=== PATIENT | female | born 1990 | race Hispanic/Latino ===

== ENCOUNTER 2017-11-17 05:39 | Emergency (ER) | payer SELFPAY ==
[2017-11-17] MEDS ORDERED: MORPHINE 4 MG/ML SYR ONE (06:13)
[2017-11-17] MEDS ORDERED: NA CHLORIDE 0.9% 1,000 ML ONE (06:13)
[2017-11-17] MEDS ORDERED: KETOROLAC 30 MG/ML INJ ONE (06:13)
[2017-11-17] MEDS ORDERED: CEFTRIAXONE 1000 MG/VIAL ONE (06:13)
[2017-11-17] MEDS ORDERED: TAMSULOSIN 0.4 MG SR CAP ONE (06:18)
[2017-11-17] MEDS ORDERED: ONDANSETRON 4 MG/2 ML VIAL ONE (06:19)
[2017-11-17 06:35] LABS: Absolute Lymphocytes (CBC) 1.6 K/uL (0.7-4.9); Absolute Monocytes 0.9 K/uL (0.1-1.3); Absolute Neutrophil 7.4 K/uL (1.8-8.0); Basophils % 0.4 % (0-1.3); Eosinophils % 0.4 % (0-4.4); Hematocrit 38.7 % (36.0-45.0); Lymphocytes % 15.6 % (15.3-44.8); MCH 29.6 pg (27.0-35.0); MCV 85.2 fL (80-100); MPV 10.1 fL (7.6-11.3); Monocytes % 9.4 % (3.3-12.3); RBC Red Blood Cell Count 4.54 M/uL (3.86-4.86)
[2017-11-17 06:45] LABS: Albumin 4.6 g/dL (3.4-5.0); Bilirubin Direct 0.1 mg/dL (0-0.2); Bilirubin Total 0.6 mg/dL (0.2-1.0); Potassium 3.7 mmol/L (3.5-5.1); Protein, Total 8.1 g/dL (6.4-8.2)
[2017-11-17 06:59] LABS: Urine Blood 2+ (NEG); Urine Glucose NEGATIVE (NEG); Urine Protein 2+ (NEG); Urine Specific Gravity 1.025 (1.005-1.030)
--- NOTE | 2017-11-17 07:24 | RAD REPORT ---
EXAM DESCRIPTION: CT - Stone Protocol - 11/17/2017 7:05 am CLINICAL HISTORY: Flank pain. ABD PAIN COMPARISON: No comparisons TECHNIQUE: Axial images were obtained without oral or IV contrast. Lack of contrast limits solid org an and vascular assessment. The [id number] spans the entirety of the system partially obscuring uppermost abdomen and lung bases. Coronal reformatted images were obtained and reviewed. All CT scans are performed using dose optimization technique as appropriate and may include automated exposure control or mA/KV adjustment according to patient size. FINDINGS: The lower lung hastings are clear. Imaged portions of the liver and spleen show no suspicious findings on non-contrast imaging. The panc reas and adrenal glands are normal. No pathologic lymphadenopathy in the abdomen or pelvis. The right kidney appears mildly edematous/enlarged. Mild right hydronephrosis and hydroureter. A calc ification in the inferior right pelvis measuring 4 mm is noted (1040 HU) suspected to represent a sto ne in the distal right ureter near the right UVJ. Assessment is somewhat limited due to lack of clear delineation between anatomic structures in this region related to a paucity of visceral fat. No priscilla tional genitourinary calculus suspected. No bowel obstruction, free air, free fluid or abscess. Normal appendix noted. No significant bony abnormality. IMPRESSION: Mild edematous/ enlarged right kidney with mild right hydronephrosis hydroureter. Suspected 4 mm calculus right UVJ resulting in mild right hydronephrosis.
--- NOTE | 2017-11-17 07:28 | EDPHYS ---
Physician Documentation [facility] Name: Lelia Huff Age: 27 yrs Sex: Female : 1990 Arrival Date: 11/17/2017 Time: 05:41 Bed 7 Private MD: ED Physician Lam Armijo HPI: 11/17 05:54 This 27 yrs old Female presents to ER via Ambulatory with complaints of donnell Abdominal Pain, Back Pain, Nausea/Vomiting. 05:54 The patient presents with pain that is acute, with no known mechanism of injury. The donnell symptoms are located in the low back, right mid back and right low back. Onset: The symptoms/episode began/occurred this morning. The pain radiates to the right mid back and right low back. Associated signs and symptoms: The patient has no apparent associated signs or symptoms. The problem was sustained from unknown cause. Modifying factors: The patient symptoms are alleviated by nothing, the patient symptoms are aggravated by nothing. Severity of symptoms: At their worst the symptoms were moderate, in the emergency department the symptoms are unchanged. The patient has not experienced similar symptoms in the past. 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 - Social history:: Smoking status: unknown. - Ebola Screening: : No symptoms or risks identified at this time. ROS: 05:55 Constitutional: Negative for fever, chills, and weight loss, Eyes: Negative for injury, donnell pain, redness, and discharge, ENT: Negative for injury, pain, and discharge, Neck: Negative for injury, pain, and swelling, Cardiovascular: Negative for chest pain, palpitations, and edema, Respiratory: Negative for shortness of breath, cough, wheezing, and pleuritic chest pain, : Negative for injury, bleeding, discharge, and swelling, MS/Extremity: Negative for injury and deformity, Skin: Negative for injury, rash, and discoloration, Neuro: Negative for headache, weakness, numbness, tingling, and seizure, Psych: Negative for depression, anxiety, suicide ideation, homicidal ideation, and hallucinations, Allergy/Immunology: Negative for hives, rash, and allergies, Endocrine: Negative for neck swelling, polydipsia, polyuria, polyphagia, and marked weight changes, Hematologic/Lymphatic: Negative for swollen nodes, abnormal bleeding, and unusual bruising. 05:55 Abdomen/GI: Positive for abdominal pain, of the posterior aspect of right lateral abdomen, anterior aspect of right lateral abdomen and right lower quadrant. 05:55 Back: Positive for pain at rest, flank pain, on the right, radiated pain, of the right mid back and right low back. Exam: 05:55 Constitutional: This is a well developed, well nourished patient who is awake, alert, donnell and in no acute distress. Head/Face: Normocephalic, atraumatic. Eyes: Pupils equal round and reactive to light, extra-ocular motions intact. Lids and lashes normal. Conjunctiva and sclera are non-icteric and not injected. Cornea within normal limits. Periorbital areas with no swelling, redness, or edema. ENT: Nares patent. No nasal discharge, no septal abnormalities noted. Tympanic membranes are normal and external auditory canals are clear. Oropharynx with no redness, swelling, or masses, exudates, or evidence of obstruction, uvula midline. Mucous membranes moist. Neck: Trachea midline, no thyromegaly or masses palpated, and no cervical lymphadenopathy. Supple, full range of motion without nuchal rigidity, or vertebral point tenderness. No Meningismus. Chest/axilla: Normal chest wall appearance and motion. Nontender with no deformity. No lesions are appreciated. Cardiovascular: Regular rate and rhythm with a normal S1 and S2. No gallops, murmurs, or rubs. Normal PMI, no JVD. No pulse deficits. Respiratory: Lungs have equal breath sounds bilaterally, clear to auscultation and percussion. No rales, rhonchi or wheezes noted. No increased work of breathing, no retractions or nasal flaring. Pelvic Exam: Normal external genitalia. Speculum exam with closed cervical os, no discharge or bleeding noted. Bimanual exam with normal adnexa, no adnexal or cervical motion tenderness. Normal uterus. Female : Normal external genitalia. Skin: Warm, dry with normal turgor. Normal color with no rashes, no lesions, and no evidence of cellulitis. MS/ Extremity: Pulses equal, no cyanosis. Neurovascular intact. Full, normal range of motion. Neuro: Awake and alert, GCS 15, oriented to person, place, time, and situation. Cranial nerves II-XII grossly intact. Motor strength 5/5 in all extremities. Sensory grossly intact. Cerebellar exam normal. Normal gait. Psych: Awake, alert, with orientation to person, place and time. Behavior, mood, and affect are within normal limits. 05:55 Abdomen/GI: Inspection: abdomen appears normal, Bowel sounds: normal, Palpation: mild abdominal tenderness, in the posterior aspect of right lateral abdomen, anterior aspect of right lateral abdomen and right lower quadrant, Rectal exam: Liver: no appreciated palpable abnormalities, Hernia: not appreciated. 07:24 Constitutional: This is a well developed, well nourished patient who is awake, alert, rh1 and in no acute distress. Cardiovascular: Regular rate and rhythm with a normal S1 and S2. No gallops, murmurs, or rubs. No JVD. No pulse deficits. Respiratory: Lungs have equal breath sounds bilaterally, clear to auscultation. No rales, rhonchi or wheezes noted. No increased work of breathing. 07:24 Abdomen/GI: Inspection: abdomen appears normal, bruising, is not seen, distension, is not seen, Bowel sounds: normal, in all quadrants, active, all quadrants, Palpation: abdomen is soft and non-tender, in all quadrants, Liver: no appreciated palpable abnormalities. 07:24 Back: pain, is absent, CVA tenderness, is absent. Vital Signs: 05:51 BP 102 / 92; Pulse 79; Resp 18 S; Temp 98.5(O); Pulse Ox 99% on R/A; Weight 62.6 kg bb (R); Height 5 ft. 4 in. (162.56 cm) (R); Pain 9/10; 07:22 Pulse 70; Resp 16; Pulse Ox 100% on R/A; la1 07:28 BP 105 / 84; la1 05:51 Body Mass Index 23.69 (62.60 kg, 162.56 cm) bb MDM: 05:49 Patient medically screened. donnell 06:31 Data reviewed: vital signs, nurses notes, lab test result(s), radiologic studies, CT donnell scan. 07:26 Data reviewed: vital signs, nurses notes, lab test result(s), radiologic studies, CT rh1 scan, and as a result, I will discharge patient. Data interpreted: Pulse oximetry: on room air is 100 %. Interpretation: normal. Counseling: I had a detailed discussion with the patient and/or guardian regarding: the historical points, exam findings, and any diagnostic results supporting the discharge/admit diagnosis, lab results, radiology results, the need for outpatient follow up, a urologist, to return to the emergency department if symptoms worsen or persist or if there are any questions or concerns that arise at home. Response to treatment: the patient's symptoms have markedly improved after treatment. ED course: She has no pain at this time, feeling much better. Urinating without pain/difficulty.. 11/17 06:03 Order name: Urine Dipstick--Ancillary (enter results); Complete Time: 07:12 mi 11/17 05:53 Order name: CT Stone Protocol; Complete Time: 07:25 [facility] 11/17 06:03 Order name: Urine --Ancillary (enter results); Complete Time: 07:12 mi 11/17 06:26 Order name: Basic Metabolic Panel; Complete Time: 07:12 EDMI 11/17 06:26 Order name: Liver (Hepatic) Function; Complete Time: 07:12 EDMI 11/17 06:26 Order name: Lipase; Complete Time: 07:12 EDMI 11/17 06:26 Order name: Creatinine (Radiology Only); Complete Time: 06:43 EDMI 11/17 06:26 Order name: CBC with Automated Diff; Complete Time: 07:12 [facility] 11/17 05:53 Order name: IV Saline Lock; Complete Time: 06:26 [facility] 11/17 05:53 Order name: Labs collected and sent; Complete Time: 06:26 [facility] 11/17 05:53 Order name: Urine Dipstick-Ancillary (obtain specimen); Complete Time: 06:25 [facility] 11/17 05:53 Order name: Urine Test (obtain specimen); Complete Time: 06:25 [facility] Administered Medications: 06:20 Drug: NS 0.9% 1000 ml Route: IV; Rate: 1 bolus; Site: right forearm; aa1 07:23 Follow up: IV Status: Completed infusion la1 06:20 Drug: Zofran 4 mg Route: IVP; Site: right antecubital; aa1 07:23 Follow up: Response: No adverse reaction; Nausea is decreased la1 06:22 Drug: TORadol 30 mg Route: IVP; Site: right antecubital; aa1 07:23 Follow up: Response: No adverse reaction; Pain is decreased la1 06:23 Drug: morphine 2 mg Route: IVP; Site: right forearm; aa1 07:23 Follow up: Response: No adverse reaction; Pain is decreased la1 06:25 Drug: Rocephin - (cefTRIAXone) 1 grams Route: IVPB; Infused Over: 30 mins; Site: right aa1 antecubital; 07:36 Follow up: IV Status: Completed infusion la1 07:27 Drug: Flomax 0.4 mg Route: PO; la1 07:27 Follow up: Response: Medication administered at discharge. la1 Disposition: 15:31 Co-signature as Attending Physician, Lam Armijo MD I agree with the assessment and donnell plan of care. Disposition: 11/17/17 07:27 Discharged to Home. Impression: Hydronephrosis with renal and ureteral calculous obstruction. - Condition is Stable. - Discharge Instructions: Kidney Stones, Kidney Stones, [id number], Hydronephrosis. - Prescriptions for Tylenol- Codeine #3 300-30 mg Oral Tablet - take 2 tablets by ORAL route every 6 hours As needed; 24 tablet. Zofran 4 mg Oral Tablet - take 1 tablet by ORAL route every 12 hours As needed; 20 tablet. Flomax 0.4 mg Oral Capsule, Sust. Release 24 hr - take 1 capsule by ORAL route once daily 1/2 hour following the same meal each day; 10 capsule. Cipro 500 mg Oral Tablet - take 1 tablet by ORAL route every 12 hours for 7 days; 14 tablet. - Medication Reconciliation Form, Thank You Letter, Antibiotic Education, Prescription Opioid Use form. - Follow up: Private Physician; When: 2 - 3 days; Reason: Recheck today's complaints, Continuance of care, Re-evaluation by your physician. Follow up: Farshad Mccauley; When: 2 - 3 days; Reason: Recheck today's complaints, Re-evaluation by your physician. - Problem is new. - Symptoms have improved. Signatures: Dispatcher [employer] EDLatanya Tapia RN RN aa1 Lam Armijo MD MD cha Ballard, Brenda RN RN bb Ted Lopez RN RN la1 Tonie Hopkins, CUT OFF MACHINE OPERATOR CUT OFF MACHINE OPERATOR rh1 Corrections: (The following items were deleted from the chart) 06:59 06:50 BASIC METABOLIC PANEL+C.LAB.BRZ ordered. EDMS EDMS 06:59 06:50 CBC+H.LAB.BRZ ordered. EDMS EDMS 06:59 06:50 Creatinine for Radiology+C.LAB.BRZ ordered. EDMS EDMS 06:59 06:50 HEPATIC FUNCTION+C.LAB.BRZ ordered. EDMS EDMS 06:59 06:50 LIPASE+C.LAB.BRZ ordered. EDMS EDMS 07:35 07:27 11/17/2017 07:27 Discharged to Home. Impression: Hydronephrosis with renal and la1 ureteral calculous obstruction. Condition is Stable. Discharge Instructions: Kidney Stones, Kidney Stones, [id number], Hydronephrosis. Prescriptions for Tylenol-Codeine #3 300-30 mg Oral Tablet - take 2 tablets by ORAL route every 6 hours As needed; 24 tablet, Zofran 4 mg Oral Tablet - take 1 tablet by ORAL route every 12 hours As needed; 20 tablet, Cipro 500 mg Oral Tablet - take 1 tablet by ORAL route every 12 hours for 7 days; 14 tablet, Flomax 0.4 mg Oral Capsule, Sust. Release 24 hr - take 1 capsule by ORAL route once daily 1/2 hour following the same meal each day; 10 capsule. and Forms are Medication Reconciliation Form, Thank You Letter, Antibiotic Education, Prescription Opioid Use. Follow up: Private Physician; When: 2 - 3 days; Reason: Recheck today's complaints, Continuance of care, Re-evaluation by your physician. Follow up: Farshad Mccauley; When: 2 - 3 days; Reason: Recheck today's complaints, Re-evaluation by your physician. Problem is new. Symptoms have improved. rh1
--- NOTE | 2017-11-17 07:28 | ER ---
Nurse's Notes [facility] Name: Lelia Huff Age: 27 yrs Sex: Female : 1990 Arrival Date: 11/17/2017 Time: 05:41 Bed 7 Private MD: Diagnosis: Hydronephrosis with renal and ureteral calculous obstruction Presentation: 11/17 05:49 Presenting complaint: Patient states: she woke up with right lower abdominal pain bb radiating to her back and vomiting pt denies dysuria pt's last menstrual cycle was August and states it is irregular. Transition of care: patient was not received from another setting of care. Onset of symptoms was November 17, 2017 at 02:00. Risk Assessment: Do you want to hurt yourself or someone else? Patient reports no desire to harm self or others. Initial Sepsis Screen: Does the patient meet any 2 criteria? No. Patient's initial sepsis screen is negative. Does the patient have a suspected source of infection? No. Patient's initial sepsis screen is negative. Care prior to arrival: None. 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 - Social history:: Smoking status: unknown. - Ebola Screening: : No symptoms or risks identified at this time. Screenin:54 Abuse screen: Denies threats or abuse. Denies injuries from another. Nutritional aa1 screening: No deficits noted. Tuberculosis screening: No symptoms or risk factors identified. Fall Risk None identified. Assessment: 05:54 General: Appears in no apparent distress. uncomfortable, Behavior is calm, cooperative, aa1 appropriate for age. Pain: Complains of pain in right lower quadrant Pain radiates to back Pain currently is 9 out of 10 on a pain scale. Quality of pain is described as stabbing. Neuro: Level of Consciousness is awake, alert, obeys commands, Oriented to person, place, time, situation, Moves all extremities. Full function Gait is steady. Respiratory: Airway is patent Respiratory effort is even, unlabored, Respiratory pattern is regular, symmetrical. GI: Abdomen is non-distended, Bowel sounds present X 4 quads. Abd is soft X 4 quads Reports lower abdominal pain, nausea, vomiting. : No signs and/or symptoms were reported regarding the genitourinary system. EENT: No signs and/or symptoms were reported regarding the EENT system. Derm: Skin is intact, is healthy with good turgor, Skin is pink, warm \T\ dry. Musculoskeletal: Circulation, motion, and sensation intact. Capillary refill < 3 seconds. 07:22 Reassessment: Patient appears in no apparent distress at this time. No changes from la1 previously documented assessment. Patient and/or family updated on plan of care and expected duration. Pain level reassessed. Vital Signs: 05:51 BP 102 / 92; Pulse 79; Resp 18 S; Temp 98.5(O); Pulse Ox 99% on R/A; Weight 62.6 kg bb (R); Height 5 ft. 4 in. (162.56 cm) (R); Pain 9/10; 07:22 Pulse 70; Resp 16; Pulse Ox 100% on R/A; la1 07:28 BP 105 / 84; la1 05:51 Body Mass Index 23.69 (62.60 kg, 162.56 cm) ED Course: 05:41 Patient arrived in ED. ag3 05:49 Lam Armijo MD is Attending Physician. [facility] 05:51 Triage completed. bb 05:51 Arm band placed on Patient placed in an exam room, on a stretcher, on pulse oximetry. bb Family accompanied patient. 05:54 Patient has correct armband on for positive identification. Bed in low position. Call aa1 light in reach. Pulse ox on. NIBP on. 05:54 Urine collected: clean catch specimen. aa1 07:06 CT Stone Protocol In Process Unspecified. EDMS 07:13 Tonie Hopkins NP is PHCP. rh1 07:22 Ted Lopez RN is Primary Nurse. la1 07:27 Farshad Mccauley MD is Referral Physician. rh1 07:34 No provider procedures requiring assistance completed. IV discontinued, intact, la1 bleeding controlled, No redness/swelling at site. Pressure dressing applied. Administered Medications: 06:20 Drug: NS 0.9% 1000 ml Route: IV; Rate: 1 bolus; Site: right forearm; aa1 07:23 Follow up: IV Status: Completed infusion la1 06:20 Drug: Zofran 4 mg Route: IVP; Site: right antecubital; aa1 07:23 Follow up: Response: No adverse reaction; Nausea is decreased la1 06:22 Drug: TORadol 30 mg Route: IVP; Site: right antecubital; aa1 07:23 Follow up: Response: No adverse reaction; Pain is decreased la1 06:23 Drug: morphine 2 mg Route: IVP; Site: right forearm; aa1 07:23 Follow up: Response: No adverse reaction; Pain is decreased la1 06:25 Drug: Rocephin - (cefTRIAXone) 1 grams Route: IVPB; Infused Over: 30 mins; Site: right aa1 antecubital; 07:36 Follow up: IV Status: Completed infusion la1 07:27 Drug: Flomax 0.4 mg Route: PO; la1 07:27 Follow up: Response: Medication administered at discharge. la1 Outcome: 07:27 Discharge ordered by . rh1 07:35 Discharged to home ambulatory. la1 07:35 Condition: stable 07:35 Discharge instructions given to patient, Instructed on discharge instructions, follow up and referral plans. medication usage, Demonstrated understanding of instructions, follow-up care, medications, Prescriptions given X 4. 07:35 Patient left the ED. la1 Signatures: Dispatcher [employer] EDMS Latanya Ventura RN RN aa1 Anderson, Corey, MD MD cha Ballard, Brenda, RN RN bb Attema, Lee, RN RN la1 Jones, Rachel, NP LINEN ATTENDANT Opal Cardona ag3
== END 2017-11-17 07:35 | disposition home or self-care (01) ==
LOC: ER 05:39
DX: N13.2 Hydronephrosis with renal and ureteral calculous obstruction (principal)
CPT/HCPCS: 36415; 74176; 76377; 80048; 80076; 81003; 81025; 83690; 85025; 99284; J2405; J7030

== ENCOUNTER 2017-11-20 10:00 | Day surgery (SDC) | payer SELFPAY ==
--- NOTE | 2017-11-20 10:37 | RAD REPORT ---
EXAM DESCRIPTION: RAD - Abdomen 1 View (KUB) - 11/20/2017 10:29 am CLINICAL HISTORY: ICD 20.0 FINDINGS: The bowel gas pattern is unremarkable. Moderate amount of stool is present throughout the colon Small calcification within the right pelvis likely corresponds to the known right ureterovesical junc tion calculus.
--- NOTE | 2017-11-20 10:39 | RAD REPORT ---
EXAM DESCRIPTION: Minesh William (2 Views)11/20/2017 10:29 am CLINICAL HISTORY: Abdominal pain/preop for genitourinary surgery COMPARISON: None FINDINGS: The lungs appear clear of acute infiltrate. The heart is normal size IMPRESSION: No acute abnormalities displayed
[2017-11-20 10:52] LABS: Hematocrit 35.9 % (36.0-45.0); MCH 29.2 pg (27.0-35.0); MCV 85.7 fL (80-100); MPV 10.1 fL (7.6-11.3); RBC Red Blood Cell Count 4.19 M/uL (3.86-4.86)
[2017-11-20] MEDS ORDERED: Ringers Lactate 1,000 ML IV ONE (10:53)
[2017-11-20] MEDS ORDERED: GENTAMICIN 100 MG/100 ML BAG 100 MG/100 ML BAG IV ONE (10:54)
[2017-11-20 10:55] LABS: Specific Gravity 1.015 (1.005-1.030)
[2017-11-20 11:09] LABS: Phosphorus 2.3 mg/dL (2.5-4.9); Uric Acid 3.8 mg/dL (2.6-6.0)
[2017-11-20 11:10] LABS: Protime INR 1.03
[2017-11-20 11:19] LABS: Urine Appearance CLOUDY; Urine Color YELLOW; Urine Specific Gravity 1.015 (1.005-1.030)
[2017-11-20 11:20] LABS: Urine Bilirubin NEGATIVE (NEG); Urine Blood 3+ (NEG); Urine Glucose NEGATIVE (NEG); Urine Microscopic Reflex ORDER UMIC; Urine Protein NEGATIVE (NEG); Urine Urobilinogen 0.2 mg/dL (0.2-1.0); Urine pH 7.5 (5.0-7.0)
[2017-11-20 11:23] LABS: Urine Bacteria 20-50 /HPF (<20); Urine Culture Reflex Order REFLEXED
[2017-11-20] MEDS ORDERED: PROPOFOL 200 MG/20 ML VIAL IV ONE (13:37)
[2017-11-20] MEDS ORDERED: FENTANYL CITR 100 MCG/2 ML ONE (13:38)
[2017-11-20] MEDS ORDERED: ONDANSETRON HCL 40 MG/20 ML VIAL ONE (14:12)
[2017-11-20] MEDS ORDERED: DEXAMETHASONE 10 MG/ML VIAL ONE (14:12)
[2017-11-20] MEDS ORDERED: KETOROLAC 30 MG/ML INJ ONE (14:12)
--- NOTE | 2017-11-20 15:15 | EKG ---
Test Date: 2017-11-20 Test Time: 10:34:00 Open Cut Examiner: ALE MEASUREMENT RESULTS: Intervals: Rate: 64 NE: 128 QRSD: 90 QT: 410 QTc: 422 [place]: P: 12 NE: 128 QRS: 30 T: 24 INTERPRETIVE STATEMENTS: Normal sinus rhythm Normal ECG No previous ECG available for comparison Electronically Signed On 11-20-17 15:15:02 CDT by Lazaro Rene
--- NOTE | 2017-11-21 09:42 | RAD REPORT ---
EXAM DESCRIPTION: RAD - Urethrocystogrphy Retrograde - 11/20/2017 2:32 pm CLINICAL HISTORY: Ureteral calculus. FINDINGS: Fourteen fluoroscopic spot images are submitted. Fluoroscopy time 29 seconds. The right ureter was cannulated and contrast administered. The examination was performed by Dr. Mccauley . Subsequently a right ureteral stent was placed.
== END 2017-11-20 15:45 | disposition home or self-care (01) ==
LOC: OR 10:00
PROVIDERS: ATTEND Urology
PROC: 0T768DZ Dilation of Right Ureter with Intraluminal Device, Via Natural or Artificial Opening Endoscopic (ICD-10-PCS; 2017-11-20)
PROC: 0TC68ZZ Extirpation of Matter from Right Ureter, Via Natural or Artificial Opening Endoscopic (ICD-10-PCS; principal; 2017-11-20 12:30)
DX: N20.1 Calculus of ureter (principal)
CPT/HCPCS: 36415; 51610; 71046; 74018; 74450; 80048; 81003; 81015; 81025; 82360; 84100; 84550; 85027; 85610; 85730; 87086; 87088; 88300; 93005; J1100; J1580; J2405; J3010; Q9967

== ENCOUNTER 2017-12-10 00:40 | Emergency (ER) | payer SELFPAY ==
[2017-12-10] MEDS ORDERED: FAMOTIDINE 20 MG/2 ML VIAL IV ONE (01:27)
[2017-12-10] MEDS ORDERED: ONDANSETRON 4 MG/2 ML VIAL ONE ×2 (01:27→02:01)
[2017-12-10 01:57] LABS: Absolute Lymphocytes (CBC) 0.3 K/uL (0.7-4.9); Absolute Monocytes 0.6 K/uL (0.1-1.3); Absolute Neutrophil 12.5 K/uL (1.8-8.0); Basophils % 0.3 % (0-1.3); Eosinophils % 0.4 % (0-4.4); Hematocrit 39.1 % (36.0-45.0); Lymphocytes % 2.5 % (15.3-44.8); MCH 28.6 pg (27.0-35.0); MCV 85.8 fL (80-100); MPV 10.4 fL (7.6-11.3); Monocytes % 4.6 % (3.3-12.3); RBC Red Blood Cell Count 4.56 M/uL (3.86-4.86)
[2017-12-10] MEDS ORDERED: MORPHINE 4 MG/ML SYR ONE (02:01)
[2017-12-10 02:08] LABS: Albumin 4.3 g/dL (3.4-5.0); Bilirubin Direct 0.2 mg/dL (0-0.2); Bilirubin Total 0.7 mg/dL (0.2-1.0); Potassium 3.8 mmol/L (3.5-5.1); Protein, Total 7.7 g/dL (6.4-8.2)
[2017-12-10 03:07] LABS: Blood Morphology Comment NOT SEEN (NOT SEEN); Platelet Estimate ADEQ
--- NOTE | 2017-12-10 03:18 | EDPHYS ---
Physician Documentation [facility] Name: Lelia Huff Age: 27 yrs Sex: Female : 1990 Arrival Date: 12/10/2017 Time: 00:41 Bed 6 Private MD: ED Physician Zafar Braden HPI: 12/10 02:30 This 27 yrs old Female presents to ER via Ambulatory with complaints of pm1 Abdominal Pain, Diarrhea. 02:30 The patient presents with abdominal pain in the epigastric area. Onset: The pm1 symptoms/episode began/occurred yesterday. The symptoms do not radiate. Associated signs and symptoms: Pertinent positives: nausea, vomiting, and diarrhea, Pertinent negatives: chest pain, dysuria, fever, shortness of breath. The symptoms are described as burning. Modifying factors: The symptoms are alleviated by nothing, the symptoms are aggravated by nothing. The patient has not experienced similar symptoms in the past. The patient has not recently seen a physician. Patient with 12 episodes of vomiting since yesterday with 3 episodes of diarrhea. 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 - Social history:: Smoking status: Patient/guardian denies using tobacco, Patient/guardian denies using alcohol, street drugs. - Ebola Screening: : Patient negative for fever greater than or equal to 101.5 degrees Fahrenheit, and additional compatible Ebola Virus Disease symptoms Patient denies exposure to infectious person Patient denies travel to an Ebola-affected area in the 21 days before illness onset. ROS: 02:30 Constitutional: Negative for fever, chills, and weight loss, Eyes: Negative for injury, pm1 pain, redness, and discharge, ENT: Negative for injury, pain, and discharge, Neck: Negative for injury, pain, and swelling, Cardiovascular: Negative for chest pain, palpitations, and edema, Respiratory: Negative for shortness of breath, cough, wheezing, and pleuritic chest pain. 02:30 Back: Negative for injury and pain, : Negative for injury, bleeding, discharge, and swelling, MS/Extremity: Negative for injury and deformity, Skin: Negative for injury, rash, and discoloration, Neuro: Negative for headache, weakness, numbness, tingling, and seizure. 02:30 Abdomen/GI: Positive for abdominal pain, nausea, vomiting, and diarrhea. Exam: 02:30 Constitutional: This is a well developed, well nourished patient who is awake, alert, pm1 and in no acute distress. Head/Face: Normocephalic, atraumatic. Eyes: Pupils equal round and reactive to light, extra-ocular motions intact. Lids and lashes normal. Conjunctiva and sclera are non-icteric and not injected. Cornea within normal limits. Periorbital areas with no swelling, redness, or edema. ENT: Nares patent. No nasal discharge, no septal abnormalities noted. Tympanic membranes are normal and external auditory canals are clear. Oropharynx with no redness, swelling, or masses, exudates, or evidence of obstruction, uvula midline. Mucous membranes moist. Neck: Trachea midline, no thyromegaly or masses palpated, and no cervical lymphadenopathy. Supple, full range of motion without nuchal rigidity, or vertebral point tenderness. No Meningismus. Chest/axilla: Normal chest wall appearance and motion. Nontender with no deformity. No lesions are appreciated. Cardiovascular: Regular rate and rhythm with a normal S1 and S2. No gallops, murmurs, or rubs. Normal PMI, no JVD. No pulse deficits. Respiratory: Lungs have equal breath sounds bilaterally, clear to auscultation and percussion. No rales, rhonchi or wheezes noted. No increased work of breathing, no retractions or nasal flaring. Abdomen/GI: Soft, non-tender, with normal bowel sounds. No distension or tympany. No guarding or rebound. No evidence of tenderness throughout. Back: No spinal tenderness. No costovertebral tenderness. Full range of motion. Skin: Warm, dry with normal turgor. Normal color with no rashes, no lesions, and no evidence of cellulitis. MS/ Extremity: Pulses equal, no cyanosis. Neurovascular intact. Full, normal range of motion. 02:30 Neuro: Orientation: is normal, Motor: is normal, moves all fours, Sensation: is normal, no obvious gross deficits, Gait: is steady, at a normal pace, without difficulty. Vital Signs: 00:55 BP 126 / 91; Pulse 99; Resp 18; Temp 98.7(O); Pulse Ox 100% on R/A; Weight 60.33 kg fc (R); Height 5 ft. 4 in. (162.56 cm) (R); Pain 11/27; 02:04 BP 116 / 82; Pulse 99; Resp 18; Pulse Ox 100% ; tl2 02:45 BP 120 / 78; Pulse 90; Resp 18; Temp 98.6; Pulse Ox 100% ; ea 00:55 Body Mass Index 22.83 (60.33 kg, 162.56 cm) fc MDM: 01:10 Patient medically screened. pm1 02:30 Data reviewed: vital signs. Data interpreted: Pulse oximetry: on room air is 100 %. pm1 Interpretation: normal. 02:30 Differential diagnosis: appendicitis, bowel obstruction, cholecystitis, Cholelithiasis, pm1 gastritis, pancreatitis, urinary tract infection, viral gastroenteritis. 02:30 Counseling: I had a detailed discussion with the patient and/or guardian regarding: the pm1 historical points, exam findings, and any diagnostic results supporting the discharge/admit diagnosis, lab results, the need for outpatient follow up, to return to the emergency department if symptoms worsen or persist or if there are any questions or concerns that arise at home. 02:30 ED course: patient with CT on 11/17/2017. Based on complaints which likely indicate pm1 viral gastroenteritis and without abdominal tenderness no need to repeat CT. . 12/10 01:13 Order name: Basic Metabolic Panel; Complete Time: 02:18 pm1 12/10 01:13 Order name: CBC with Diff pm1 12/10 01:13 Order name: Hepatic Function; Complete Time: 02:18 pm1 12/10 01:13 Order name: Lipase; Complete Time: 02:18 pm1 12/10 02:14 Order name: Urine Dipstick--Ancillary (enter results) ms 12/10 02:15 Order name: Manual Differential EDMS 12/10 01:13 Order name: IV Saline Lock; Complete Time: 01:19 pm1 12/10 01:13 Order name: Labs collected and sent; Complete Time: 01:19 pm1 12/10 01:13 Order name: Urine Dipstick-Ancillary (obtain specimen); Complete Time: 02:05 pm1 12/10 01:13 Order name: Urine Test (obtain specimen); Complete Time: 02:05 pm1 Administered Medications: 01:24 Drug: Zofran 4 mg Route: IVP; Site: right antecubital; tl2 02:00 Follow up: Response: No adverse reaction; Marked relief of symptoms ea 01:24 Drug: Pepcid 20 mg Route: IVP; Site: right antecubital; tl2 02:00 Follow up: Response: No adverse reaction ea 02:00 Drug: Zofran 4 mg Route: IVP; Site: right antecubital; ea 02:37 Follow up: Response: No adverse reaction; Marked relief of symptoms ea 02:05 Drug: morphine 4 mg Route: IVP; Site: right antecubital; ea 02:37 Follow up: Response: No adverse reaction; Pain is decreased ea Disposition: 03:47 Co-signature as Attending Physician, Zafar Braden MD I agree with the assessment and tw4 plan of care. Attestation: The patient's history, exam findings, diagnostics, and a summary of any interventions or procedures was reviewed in detail with Nemesio Espinoza NP. Disposition: 12/10/17 02:40 Discharged to Home. Impression: Vomiting, Diarrhea, unspecified, Unspecified abdominal pain. - Condition is Stable. - Discharge Instructions: Abdominal Pain, Adult, Food Choices to Help Relieve Diarrhea, Adult, Diarrhea, Adult, Nausea and Vomiting, Adult, Viral Gastroenteritis, Adult. - Prescriptions for Zofran ODT 4 mg Oral tablet,disintegrating - place 1 tablet by TRANSLINGUAL route every 8 hours As needed; 20 tablet. Bentyl 20 mg Oral Tablet - take 1 tablet by ORAL route every 6 hours As needed; 20 tablet. Phenergan 25 mg Rectal Suppository - insert 1 suppository by RECTAL route every 6 hours As needed; 12 suppository. Pepcid 20 mg Oral Tablet - take 1 tablet by ORAL route every 12 hours for 10 days; 20 tablet. - Medication Reconciliation Form, Thank You Letter, Antibiotic Education, Prescription Opioid Use, Work release form form. - Follow up: Emergency Department; When: As needed; Reason: Worsening of condition. Follow up: Private Physician; When: 2 - 3 days; Reason: Recheck today's complaints, Continuance of care, Re-evaluation by your physician. - Problem is new. - Symptoms have improved. Signatures: Dispatcher [employer] EDMS Deanna Fernández, RN RN Nemesio Cote NP NP pm1 Kadie Chavez, RN RN tl2 Amy Cleaning, RN RN Zafar Umaña MD MD tw4 Corrections: (The following items were deleted from the chart) 02:40 02:40 12/10/2017 02:40 Discharged to Home. Impression: Vomiting; Diarrhea, unspecified. pm1 Condition is Stable. Forms are Medication Reconciliation Form, Thank You Letter, Antibiotic Education, Prescription Opioid Use. Follow up: Emergency Department; When: As needed; Reason: Worsening of condition. Follow up: Private Physician; When: 2 - 3 days; Reason: Recheck today's complaints, Continuance of care, Re-evaluation by your physician. Problem is new. Symptoms have improved. pm1 03:16 02:40 12/10/2017 02:40 Discharged to Home. Impression: Vomiting; Diarrhea, unspecified; ea Unspecified abdominal pain. Condition is Stable. Forms are Medication Reconciliation Form, Thank You Letter, Antibiotic Education, Prescription Opioid Use. Follow up: Emergency Department; When: As needed; Reason: Worsening of condition. Follow up: Private Physician; When: 2 - 3 days; Reason: Recheck today's complaints, Continuance of care, Re-evaluation by your physician. Problem is new. Symptoms have improved. pm1
--- NOTE | 2017-12-10 03:18 | ER ---
Nurse's Notes [facility] Name: Lelia Huff Age: 27 yrs Sex: Female : 1990 Arrival Date: 12/10/2017 Time: 00:41 Bed 6 Private MD: Diagnosis: Vomiting;Diarrhea, unspecified;Unspecified abdominal pain Presentation: 12/10 00:55 Presenting complaint: states: that the patient is having abd pain, nausea, fc vomiting and diarrhea that started yesterday at 1700. States that she has vomited at least 10 times. Transition of care: patient was not received from another setting of care. Onset of symptoms was December 09, 2017 at 17:00. Risk Assessment: Do you want to hurt yourself or someone else? Patient reports no desire to harm self or others. Initial Sepsis Screen: Does the patient meet any 2 criteria? HR > 90 bpm. Yes Does the patient have a suspected source of infection? No. Patient's initial sepsis screen is negative. Care prior to arrival: None. 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 - Social history:: Smoking status: Patient/guardian denies using tobacco, Patient/guardian denies using alcohol, street drugs. - Ebola Screening: : Patient negative for fever greater than or equal to 101.5 degrees Fahrenheit, and additional compatible Ebola Virus Disease symptoms Patient denies exposure to infectious person Patient denies travel to an Ebola-affected area in the 21 days before illness onset. Screenin:55 Abuse screen: Denies threats or abuse. Nutritional screening: No deficits noted. fc Tuberculosis screening: No symptoms or risk factors identified. Fall Risk None identified. Assessment: 01:30 General: Appears uncomfortable, Behavior is calm, cooperative, restless. Pain: ea Complains of pain in epigastric area Pain does not radiate. Pain currently is 8 out of 10 on a pain scale. Quality of pain is described as aching. Neuro: Level of Consciousness is awake, alert, obeys commands, Oriented to person, place, time, situation. Cardiovascular: Patient's skin is warm and dry. Respiratory: Airway is patent Respiratory effort is even, unlabored, Respiratory pattern is regular, symmetrical, Breath sounds are clear bilaterally. GI: Bowel sounds present X 4 quads. Abd is soft X 4 quads Abdomen is tender to palpation in right upper quadrant and left upper quadrant. : No signs and/or symptoms were reported regarding the genitourinary system. Derm: Skin is dry, Skin is pale, Skin temperature is warm. Musculoskeletal: Circulation, motion, and sensation intact. 02:17 Reassessment: Patient and/or family updated on plan of care and expected duration. Pain ea level reassessed. Patient is alert, oriented x 3, equal unlabored respirations, skin warm/dry/pink. Patient states symptoms have improved. 02:55 Reassessment: Patient and/or family updated on plan of care and expected duration. Pain ea level reassessed. Patient is alert, oriented x 3, equal unlabored respirations, skin warm/dry/pink. Discharge instructions given to patient, verbalized the understanding of instructions. Patient states symptoms have improved. Vital Signs: 00:55 BP 126 / 91; Pulse 99; Resp 18; Temp 98.7(O); Pulse Ox 100% on R/A; Weight 60.33 kg fc (R); Height 5 ft. 4 in. (162.56 cm) (R); Pain 10/10; 02:04 BP 116 / 82; Pulse 99; Resp 18; Pulse Ox 100% ; tl2 02:45 BP 120 / 78; Pulse 90; Resp 18; Temp 98.6; Pulse Ox 100% ; ea 00:55 Body Mass Index 22.83 (60.33 kg, 162.56 cm) ED Course: 00:41 Patient arrived in ED. am2 00:55 Arm band placed on Patient placed in an exam room, on a stretcher. fc 00:55 Patient has correct armband on for positive identification. Placed in gown. Bed in low fc position. Call light in reach. Side rails up X 1. Pulse ox on. NIBP on. 00:55 No provider procedures requiring assistance completed. fc 01:04 Nemesio Espinoza NP is PHCP. pm1 01:04 Zafar Braden MD is Attending Physician. pm1 01:06 Triage completed. fc 01:15 Inserted saline lock: 20 gauge in right antecubital area, using aseptic technique. tl2 Blood collected. 01:17 Amy Cleaning, RN is Primary Nurse. ea 02:50 IV discontinued, intact, bleeding controlled, No redness/swelling at site. Pressure ea dressing applied. Administered Medications: 01:24 Drug: Zofran 4 mg Route: IVP; Site: right antecubital; tl2 02:00 Follow up: Response: No adverse reaction; Marked relief of symptoms ea 01:24 Drug: Pepcid 20 mg Route: IVP; Site: right antecubital; tl2 02:00 Follow up: Response: No adverse reaction ea 02:00 Drug: Zofran 4 mg Route: IVP; Site: right antecubital; ea 02:37 Follow up: Response: No adverse reaction; Marked relief of symptoms ea 02:05 Drug: morphine 4 mg Route: IVP; Site: right antecubital; ea 02:37 Follow up: Response: No adverse reaction; Pain is decreased ea Outcome: 02:40 Discharge ordered by MD. pm1 02:55 Discharged to home ambulatory, with family. ea 02:55 Condition: improved 02:55 Discharge instructions given to patient, family, Instructed on discharge instructions, follow up and referral plans. medication usage, Demonstrated understanding of instructions, follow-up care, medications, Prescriptions given X 4. 03:16 Patient left the ED. ea Signatures: Deanna Fernández RN RN Nemesio Espinoza NP BOXCAR WEIGHER pm1 Kadie Chavez RN RN tl2 Candice Mcgraw 2 Amy Cleaning RN RN ea Corrections: (The following items were deleted from the chart) 03:14 03:13 BP 120 / 78; Pulse 90bpm; Resp 18bpm; Pulse Ox 100%; Temp 98.6F; ea ea
[2017-12-10 04:30] LABS: Urine Blood 2+ (NEG); Urine Glucose NEGATIVE (NEG); Urine Protein 1+ (NEG); Urine Specific Gravity 1.015 (1.005-1.030); Urine pH >8.5 (5.0-7.0)
== END 2017-12-10 03:16 | disposition home or self-care (01) ==
LOC: ER 00:40
DX: R19.7 Diarrhea, unspecified (principal); R10.13 Epigastric pain
CPT/HCPCS: 36415; 80048; 80076; 81003; 83690; 85025; 96374; 96375; 99284; J2405

== ENCOUNTER 2020-05-03 18:48 | Emergency (ER) | payer BC, OTHER ==
[2020-05-03] MEDS ORDERED: MECLIZINE HCL 12.5 MG TAB ONE (23:15)
[2020-05-03] MEDS ORDERED: NA CHLORIDE 0.9% 1,000 ML ONE (23:16)
[2020-05-03] MEDS ORDERED: ONDANSETRON 4 MG/2 ML VIAL ONE (23:16)
[2020-05-03 23:29] LABS: Basophils % 0.3 % (0-1.3); Hematocrit 36.6 % (36.0-45.0); MPV 10.3 fL (7.6-11.3); RBC Red Blood Cell Count 4.22 M/uL (3.86-4.86)
[2020-05-03 23:43] LABS: ALT/SGPT 18 U/L (12-78); AST/SGOT 18 U/L (15-37); Albumin 4.4 g/dL (3.4-5.0); Alkaline Phosphatase 73 U/L (45-117); BUN Blood Urea Nitrogen 13 mg/dL (7-18); Bicarbonate 23 mmol/L (21-32); Bilirubin Direct 0.2 mg/dL (0-0.2); Glucose Level 109 mg/dL (74-106); Magnesium 2.3 mg/dL (1.8-2.4); Protein, Total 7.8 g/dL (6.4-8.2); Sodium Level 138 mmol/L (136-145); Troponin (Emerg Dept Use Only) < 0.02 ng/mL (0.0-0.045)
--- NOTE | 2020-05-04 00:22 | ER ---
Nurse's Notes [facility] Name: Lelia Huff Age: 29 yrs Sex: Female : 1990 Arrival Date: 05/03/2020 Time: 18:56 Bed 26 Private MD: Diagnosis: Dizziness and giddiness;Vomiting Presentation: 05/03 18:56 Chief complaint: Patient states: Dizziness started while at work today about 1730. Then ll1 she started having SOB, fast breathing, hands/feet cramping. EMS states: Hyperventilating on scene. HR initially 128, 100 upon arrival to hospital. Fingerstick 143. No everyday medications. Coronavirus screen: Client denies travel out of the [place] in the last 14 days. At this time, the client does not indicate any symptoms associated with coronavirus-19. Ebola Screen: Patient denies travel to an Ebola-affected area in the 21 days before illness onset. Initial Sepsis Screen: Does the patient meet any 2 criteria? HR > 90 bpm. No. Patient's initial sepsis screen is negative. Does the patient have a suspected source of infection? No. Patient's initial sepsis screen is negative. Risk Assessment: Do you want to hurt yourself or someone else? Patient reports no desire to harm self or others. Onset of symptoms was May 03, 2020. 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 - Social history:: Smoking status: Patient denies any tobacco usage or history of. - Family history:: not pertinent. Screenin:20 Abuse screen: Denies threats or abuse. Denies injuries from another. Nutritional iw screening: No deficits noted. Tuberculosis screening: No symptoms or risk factors identified. Fall Risk None identified. Assessment: 23:19 General: Appears in no apparent distress. Behavior is calm, cooperative. Pain: Denies iw pain. Neuro: Level of Consciousness is awake, alert, obeys commands, Oriented to person, place, time, situation, Moves all extremities. Full function. Neuro: Reports dizziness. Cardiovascular: Patient's skin is warm and dry. Respiratory: Respiratory effort is even, unlabored, Respiratory pattern is regular, symmetrical. Derm: Skin is intact, is healthy with good turgor. Musculoskeletal: Range of motion: intact in all extremities. 05/04 00:12 Reassessment: Patient appears in no apparent distress at this time. Patient and/or iw family updated on plan of care and expected duration. Pain level reassessed. Patient is alert, oriented x 3, equal unlabored respirations, skin warm/dry/pink. Vital Signs: 05/03 18:56 BP 113 / 96; Pulse 97; Resp 18; Temp 97.6; Pulse Ox 100% ; Weight 61.23 kg; Height 5 ll1 ft. 4 in. (162.56 cm); Pain 0/10; 20:31 Pulse 97; Resp 18; Pulse Ox 100% ; ll1 18:56 Body Mass Index 23.17 (61.23 kg, 162.56 cm) ll1 20:31 Actively vomiting. Given zofran ODT. ll1 ED Course: 18:56 Patient arrived in ED. ll1 19:00 Triage completed. ll1 19:01 Arm band placed on. ll1 21:58 Lam Armijo MD is Attending Physician. [facility] 22:40 Ibis Marcus, RN is Primary Nurse. iw 23:00 Initial lab(s) drawn, by me, sent to lab. Inserted saline lock: 22 gauge in right sg antecubital area, using aseptic technique. Blood collected. 23:26 CT Head Brain wo Cont In Process Unspecified. EDMS 23:57 XRAY Chest (1 view) In Process Unspecified. EDMS 05/04 00:47 Patient has correct armband on for positive identification. iw 00:47 No provider procedures requiring assistance completed. IV discontinued, intact, iw bleeding controlled, No redness/swelling at site. Pressure dressing applied. Administered Medications: 05/03 20:30 Drug: Zofran (Ondansetron) 4 mg Route: PO; ll1 23:33 Drug: NS 0.9% 1000 ml Route: IV; Rate: 1 bolus; Site: right antecubital; iw 23:33 Drug: Meclizine 50 mg Route: PO; iw 03/17 00:12 Not Given (Patient Refused): Zofran (Ondansetron) 4 mg IVP once; over 2 minutes iw Outcome: 00:21 Discharge ordered by . donnell 00:47 Discharged to home ambulatory, with family. iw 00:47 Condition: good 00:47 Discharge instructions given to patient, family, Instructed on discharge instructions, follow up and referral plans. medication usage, Demonstrated understanding of instructions, follow-up care, medications, Prescriptions given X 2. 00:47 Patient left the ED. iw Signatures: Dispatcher [employer] EDMS Sid Steen RN RN sg Anderson, Corey, MD MD cha Williams, Irene RN Amy Herrera RN RN ea Lewis, Lynsay RN RN ll1 Corrections: (The following items were deleted from the chart) 05/03 23:12 23:10 Initial lab(s) drawn, by me, sent to lab. ea ea 23:12 23:10 Inserted saline lock: 22 gauge in right antecubital area, using aseptic ea technique. Blood collected. ea
--- NOTE | 2020-05-04 00:22 | EDPHYS ---
Physician Documentation [facility] Name: Lelia Huff Age: 29 yrs Sex: Female : 1990 Arrival Date: 05/03/2020 Time: 18:56 Bed 26 Private MD: ED Physician Lam Armijo HPI: 05/03 22:51 This 29 yrs old Female presents to ER via EMS with complaints of Dizziness. donnell 22:51 The patient presents with dizziness, generalized weakness, lightheadedness, sense of donnell spinning. Onset: The symptoms/episode began/occurred just prior to arrival, today. Context: occurred at work, occurred while the patient was working. Modifying factors: The symptoms are alleviated by nothing, the symptoms are aggravated by nothing. Associated signs and symptoms: The patient has no apparent associated signs or symptoms. Severity of symptoms: At their worst the symptoms were mild moderate in the emergency department the symptoms have improved. Patient's baseline: Neuro: alert and fully oriented. The patient has not experienced similar symptoms in the past. ADMIN DIR: 05/04 00:40 LMP N/A - iw Historical: - Allergies: 05/03 19:01 No Known Allergies; ll1 - PMHx: 19:01 Kidney stones; ll1 - PSHx: 19:01 kidney stone removal; ll1 - Immunization history:: Flu vaccine is not up to date. - Social history:: Smoking status: Patient denies any tobacco usage or history of. - Family history:: not pertinent. ROS: 22:51 Constitutional: Negative for fever, chills, and weight loss, Eyes: Negative for injury, donnell pain, redness, and discharge, ENT: Negative for injury, pain, and discharge, Neck: Negative for injury, pain, and swelling, Cardiovascular: Negative for chest pain, palpitations, and edema, Respiratory: Negative for shortness of breath, cough, wheezing, and pleuritic chest pain, Abdomen/GI: Negative for abdominal pain, nausea, vomiting, diarrhea, and constipation, Back: Negative for injury and pain, : Negative for injury, bleeding, discharge, and swelling, MS/Extremity: Negative for injury and deformity, Skin: Negative for injury, rash, and discoloration, Psych: Negative for depression, anxiety, suicide ideation, homicidal ideation, and hallucinations, Allergy/Immunology: Negative for hives, rash, and allergies, Endocrine: Negative for neck swelling, polydipsia, polyuria, polyphagia, and marked weight changes, Hematologic/Lymphatic: Negative for swollen nodes, abnormal bleeding, and unusual bruising. 22:51 Neuro: Positive for dizziness, weakness. Exam: 22:51 Constitutional: This is a well developed, well nourished patient who is awake, alert, donnell and in no acute distress. Head/Face: Normocephalic, atraumatic. Eyes: Pupils equal round and reactive to light, extra-ocular motions intact. Lids and lashes normal. Conjunctiva and sclera are non-icteric and not injected. Cornea within normal limits. Periorbital areas with no swelling, redness, or edema. ENT: Nares patent. No nasal discharge, no septal abnormalities noted. Tympanic membranes are normal and external auditory canals are clear. Oropharynx with no redness, swelling, or masses, exudates, or evidence of obstruction, uvula midline. Mucous membranes moist. Neck: Trachea midline, no thyromegaly or masses palpated, and no cervical lymphadenopathy. Supple, full range of motion without nuchal rigidity, or vertebral point tenderness. No Meningismus. Chest/axilla: Normal chest wall appearance and motion. Nontender with no deformity. No lesions are appreciated. Cardiovascular: Regular rate and rhythm with a normal S1 and S2. No gallops, murmurs, or rubs. Normal PMI, no JVD. No pulse deficits. Respiratory: Lungs have equal breath sounds bilaterally, clear to auscultation and percussion. No rales, rhonchi or wheezes noted. No increased work of breathing, no retractions or nasal flaring. Abdomen/GI: Soft, non-tender, with normal bowel sounds. No distension or tympany. No guarding or rebound. No evidence of tenderness throughout. Back: No spinal tenderness. No costovertebral tenderness. Full range of motion. Skin: Warm, dry with normal turgor. Normal color with no rashes, no lesions, and no evidence of cellulitis. MS/ Extremity: Pulses equal, no cyanosis. Neurovascular intact. Full, normal range of motion. Neuro: Awake and alert, GCS 15, oriented to person, place, time, and situation. Cranial nerves II-XII grossly intact. Motor strength 5/5 in all extremities. Sensory grossly intact. Cerebellar exam normal. Normal gait. Psych: Awake, alert, with orientation to person, place and time. Behavior, mood, and affect are within normal limits. 05/04 00:14 ECG was reviewed by the Attending Physician. [facility] Vital Signs: 05/03 18:56 BP 113 / 96; Pulse 97; Resp 18; Temp 97.6; Pulse Ox 100% ; Weight 61.23 kg; Height 5 ll1 ft. 4 in. (162.56 cm); Pain 0/10; 20:31 Pulse 97; Resp 18; Pulse Ox 100% ; ll1 18:56 Body Mass Index 23.17 (61.23 kg, 162.56 cm) ll1 20:31 Actively vomiting. Given zofran ODT. ll1 MDM: 21:59 Patient medically screened. donnell 22:53 Differential diagnosis: cardiac arrhythmia, CVA, generalized weakness, hypovolemia, donnell idiopathic dizziness, near-syncope. Data reviewed: vital signs, nurses notes, lab test result(s), EKG, radiologic studies, CT scan, plain films. Data interpreted: court recording monitor: rate is 97 beats/min, rhythm is regular, Pulse oximetry: on room air is 10 %. Test interpretation: by ED physician or midlevel provider: ECG, plain radiologic studies. Counseling: I had a detailed discussion with the patient and/or guardian regarding: the historical points, exam findings, and any diagnostic results supporting the discharge/admit diagnosis, lab results, radiology results, the need for outpatient follow up, for definitive care, a family practitioner. 05/03 22:51 Order name: Basic Metabolic Panel [facility] 05/03 22:51 Order name: CBC with Diff [facility] 05/03 22:51 Order name: LFT's; Complete Time: 00:04 [facility] 05/03 22:51 Order name: Magnesium; Complete Time: 00:04 [facility] 05/03 22:51 Order name: Troponin (emerg Dept Use Only); Complete Time: 00:04 [facility] 05/03 22:51 Order name: D-Dimer; Complete Time: 23:35 [facility] 05/03 22:51 Order name: XRAY Chest (1 view) [facility] 05/03 22:51 Order name: CT Head Brain wo Cont [facility] 05/03 22:51 Order name: Basic Metabolic Panel; Complete Time: 00:04 EDMS 05/03 22:51 Order name: CBC with Automated Diff EDMS 05/03 23:34 Order name: Manual Differential EDMS 05/04 00:17 Order name: Urine --Ancillary (enter results) tt3 05/04 00:17 Order name: Urine Dipstick--Ancillary (enter results) tt3 05/03 22:51 Order name: EKG; Complete Time: 22:52 [facility] 05/03 22:51 Order name: Cardiac monitoring; Complete Time: 22:56 [facility] 05/03 22:51 Order name: EKG - Nurse/Tech; Complete Time: 23:50 [facility] 05/03 22:51 Order name: IV Saline Lock; Complete Time: 22:56 [facility] 05/03 22:51 Order name: Labs collected and sent; Complete Time: 22:56 [facility] 05/03 22:51 Order name: O2 Per Protocol; Complete Time: 22:56 [facility] 05/03 22:51 Order name: O2 Sat Monitoring; Complete Time: 22:56 [facility] 05/03 22:51 Order name: Urine Dipstick-Ancillary (obtain specimen); Complete Time: 00:20 [facility] 05/03 22:51 Order name: Urine Test (obtain specimen); Complete Time: 00:20 [facility] EC/17 00:14 Rate is 82 beats/min. Rhythm is regular. QRS [place] is Normal. [place] interval is normal. QRS donnell interval is normal. QT interval is normal. No Q waves. T waves are Normal. No ST changes noted. Clinical impression: NSR w/ Non-specific ST/T Changes and No evidence of ischemia. Interpreted by me. Reviewed by me. Administered Medications: 05/03 20:30 Drug: Zofran (Ondansetron) 4 mg Route: PO; ll1 23:33 Drug: NS 0.9% 1000 ml Route: IV; Rate: 1 bolus; Site: right antecubital; iw 23:33 Drug: Meclizine 50 mg Route: PO; iw 05/04 00:12 Not Given (Patient Refused): Zofran (Ondansetron) 4 mg IVP once; over 2 minutes iw Disposition: 05/04/20 00:21 Discharged to Home. Impression: Dizziness and giddiness, Vomiting. - Condition is Stable. - Discharge Instructions: Dizziness, Nausea and Vomiting, Adult, Nausea and Vomiting, Adult, [id number], Dizziness, [id number]. - Prescriptions for Meclizine 25 mg Oral Tablet - take 1 tablet by ORAL route every 8 hours As needed; 30 tablet. Zofran 4 mg Oral Tablet - take 1 tablet by ORAL route every 12 hours As needed; 20 tablet. - Medication Reconciliation Form, Thank You Letter, Antibiotic Education, Prescription Opioid Use, Work release form form. - Follow up: Private Physician; When: 2 - 3 days; Reason: Recheck today's complaints, Continuance of care, Re-evaluation by your physician. - Problem is new. - Symptoms have improved. Signatures: Dispatcher [employer] EDMA Lam Armijo MD MD cha Williams, Irene, RN RN iw Efrain Purcell RN RN ll1 Corrections: (The following items were deleted from the chart) 00:47 00:21 05/04/2020 00:21 Discharged to Home. Impression: Dizziness and giddiness; iw Vomiting. Condition is Stable. Discharge Instructions: Dizziness, Nausea and Vomiting, Adult, Nausea and Vomiting, Adult, [id number], Dizziness, [id number]. Prescriptions for Meclizine 25 mg Oral Tablet - take 1 tablet by ORAL route every 8 hours As needed; 30 tablet, Zofran 4 mg Oral Tablet - take 1 tablet by ORAL route every 12 hours As needed; 20 tablet. and Forms are Medication Reconciliation Form, Thank You Letter, Antibiotic Education, Prescription Opioid Use. Follow up: Private Physician; When: 2 - 3 days; Reason: Recheck today's complaints, Continuance of care, Re-evaluation by your physician. Problem is new. Symptoms have improved. donnell
[2020-05-04 00:34] LABS: Urine Blood NEGATIVE (NEG); Urine Glucose NEGATIVE (NEG); Urine Protein TRACE (NEG); Urine Specific Gravity 1.015 (1.005-1.030); Urine pH 8.5 (5.0-7.0)
[2020-05-04 00:48] LABS: Blood Morphology Comment NOT SEEN (NOT SEEN); Platelet Estimate ADEQ
[2020-05-04 00:53] VITALS: BP 113/96; TEMP 97.6; O2SAT 100
--- NOTE | 2020-05-04 04:32 | EKG ---
Test Date: 2020-05-03 Test Time: 23:43:39 Mandrel Maker: JUAN MANUEL MEASUREMENT RESULTS: Intervals: Rate: 82 CA: 156 QRSD: 92 QT: 408 QTc: 476 [place]: P: 64 CA: 156 QRS: 42 T: 16 INTERPRETIVE STATEMENTS: Normal sinus rhythm RSR' or QR pattern in V1 suggests right ventricular conduction delay Borderline ECG Compared to ECG 11/20/2017 10:34:00 RSR' in V1 or V2 now present Electronically Signed On 05-04-20 04:32:09 CDT by Jah Grier
--- NOTE | 2020-05-04 07:25 | RAD REPORT ---
EXAM DESCRIPTION: Minesh Single View05/03/2020 11:58 pm CLINICAL HISTORY: Cough COMPARISON: 2017 FINDINGS: The lungs appear clear of acute infiltrate. The heart is normal size IMPRESSION: No acute abnormalities displayed
--- NOTE | 2020-05-04 11:41 | RAD REPORT ---
EXAM DESCRIPTION: CT - Head Brain Wo Cont - 05/04/2020 7:01 am CLINICAL HISTORY: 29 years, Female, DIZZINESS COMPARISON: None. FINDINGS: Multiple transaxial tomograms of the brain were obtained from the base of the skull to the vertex without contrast. 2-D multiplanar reformats and the coronal and sagittal plane were performed and reviewed. An individualized dose optimization technique, Automated Exposure Control, was utilized for the perfo rmed procedure. Brain parenchyma as well as the kumari and white matter differentiation demonstrate to be unremarkable. There is no midline shift and/or mass effect. There is no evidence for acute hemorrhage and/or infar ction. Lateral ventricles and cisterns displace normal appearance. No intra or extra axial fluid collections were seen. The calvarium is intact with no evidence for fracture. The visualized portions of the paranasal sinuses and orbits demonstrate to be clear. IMPRESSION: NO ACUTE INTRACRANIAL HEMORRHAGE. GROSSLY UNREMARKABLE CT SCAN OF THE HEAD WITHOUT CONTRAST. Electronically signed by: Jaun Keene MD 05/03/2020 11:32 PM CDT Due to temporary technical issues with the PACS/Fluency reporting system, reports are being signed by the in house radiologists without review as a courtesy to insure prompt reporting. The interpreting radiologist is fully responsible for the content of the report.
== END 2020-05-04 00:47 | disposition home or self-care (01) ==
LOC: ER 18:48
DX: R42 Dizziness and giddiness (principal); R11.0 Nausea
CPT/HCPCS: 93005; 85025; 80048; 36415; 83735; 81025; 85379; 80076; 81003; 84484; 70450; 71045; 99284; J7030; J2405